=== PATIENT | female | born 1965 | race Caucasian/White ===

== ENCOUNTER 2017-03-18 19:06 | Emergency (ER) | payer SELFPAY ==
[2017-03-18 19:46] LABS: ADD MAN DIFF? NO
[2017-03-18 19:49] LABS: BASO % 1 % (0-3); EOS % 2 % (0-3); HEMATOCRIT 40.7 % (36.0-47.0); HEMOGLOBIN 13.9 g/dL (12.0-15.5); LYMPH # 2.3 x10^3/uL (1.0-4.8); LYMPH % 25 % (24-48); MEAN CORPUSCULAR HEMOGLOBIN 31 pg (25-35); MEAN CORPUSCULAR HGB CONC 34 g/dL (31-37); MEAN CORPUSCULAR VOLUME 92 fL (79-100); MONO % 8 % (0-9); NEUT % 65 % (31-73); PLATELET COUNT 308 x10^3/uL (140-400); RED BLOOD COUNT 4.44 x10^6/uL (3.50-5.40); RED CELL DISTRIBUTION WIDTH 13.3 % (11.5-14.5); WHITE BLOOD COUNT 9.1 x10^3/uL (4.0-11.0)
[2017-03-18 19:53] LABS: BILIRUBIN,URINE NEGATIVE (NEG); GLUCOSE,URINE NEGATIVE (NEG); NITRITE,URINE NEGATIVE (NEG); PROTEIN,URINE NEGATIVE (NEG-TRACE)
[2017-03-18] MEDS: IV NORMAL SALINE 1000ML BAG 1,000 ML IV (19:53)
[2017-03-18] MEDS: ONDANSETRON PF 4 MG/2 ML VIAL. IV (19:54)
[2017-03-18] MEDS: KETOROLAC 30 MG/ML INJ. IV (19:55)
[2017-03-18 19:56] LABS: ANION GAP 11 (6-14); BLOOD UREA NITROGEN 12 mg/dL (7-20); BUN/CREATININE RATIO 15 (6-20); CALCIUM 8.2 mg/dL (8.5-10.1); CARBON DIOXIDE 24 mmol/L (21-32); CHLORIDE 105 mmol/L (98-107); CREATININE 0.8 mg/dL (0.6-1.0); GFR 75.9; GLUCOSE 113 mg/dL (70-99); POTASSIUM 3.7 mmol/L (3.5-5.1); SODIUM 140 mmol/L (136-145)
[2017-03-18] MEDS: FAMOTIDINE 20 MG/2 ML VIAL IVP (19:56)
[2017-03-18] MEDS: LIDO:MAALOX:DONNATAL 1:1:1 15 ML SINGLE DOSE SWSW (19:56)
[2017-03-18 20:02] LABS: ALBUMIN 3.4 g/dL (3.4-5.0); ALBUMIN/GLOBULIN RATIO 0.8 (1.0-1.7); ALK PHOS 106 U/L (46-116); ALT (SGPT) 14 U/L (14-59); AST (SGOT) 21 U/L (15-37); TOTAL BILIRUBIN 0.7 mg/dL (0.2-1.0); TOTAL PROTEIN 7.8 g/dL (6.4-8.2)
[2017-03-18 20:04] LABS: TROPONINI < 0.017 ng/mL (0.000-0.055)
[2017-03-18 20:04] LABS: BACTERIA,URINE MANY /HPF (0-FEW); RBC,URINE 0 /HPF (0-2); SQUAMOUS EPITHELIAL CELL,UR MANY /LPF; WBC,URINE 0 /HPF (0-4)
[2017-03-18] MEDS ORDERED: CONTRAST GIVEN MC (20:45)
[2017-03-18] MEDS: IOHEXOL 300 MG/ML 100ML VIAL. IV (20:47)
== END 2017-03-18 22:10 | disposition home or self-care (01) ==
LOC: ER 22:10
DX: R10.13 Epigastric pain (principal); K21.9 Gastro-esophageal reflux disease without esophagitis; F12.10 Cannabis abuse, uncomplicated; F15.10 Other stimulant abuse, uncomplicated; F10.20 Alcohol dependence, uncomplicated; Z90.49 Acquired absence of other specified parts of digestive tract; Z90.710 Acquired absence of both cervix and uterus
CPT/HCPCS: 36415; 74177; 80053; 81001; 83690; 84484; 85025; 87086; 93005; 96361; 96374; 96375; 99285-25; J1885; J2405; J7030; Q9967; S0028

== ENCOUNTER 2018-10-03 13:19 | Emergency (ER) | payer SELFPAY ==
[~2018-10-03] VITALS: Ht 162.6 cm; Wt 86.2 kg
[~2018-10-03 13:19] MED LIST: ACYC800T PO; BENZ100C PO; CLIN300C8 PO; FAMO-63 PO; HYDR-2678 PO; HYDR-3164 PO; NAPR-683 PO; OMEP20TA63 PO; ONDA4TAB10 SL; PRED20TA PO
--- NOTE | 2018-10-03 14:57 | PHYS DOC ---
Past Medical History Past Medical History: Cancer, Other Additional Past Medical Histor: acid reflux; cervical CA Past Surgical History: Cholecystectomy, , Hysterectomy Additional Past Surgical Histo: D&C Alcohol Use: Heavy Drug Use: Marijuana, Methamphetamine Adult General Chief Complaint Chief Complaint: DRUG ABUSE [facility] HPI Patient is a 53 year old female that presents for help stopping meth and alcohol. The patient states she last used meth and alcohol yesterday. She also states she's been feeling depressed and wanting to sleep a lot. The patient states that she would never kill herself however. Also states she's been feeling little short of breath recently. States she has not eaten in 2-3 days. Review of Systems Review of Systems Constitutional: Denies fever or chills [] Eyes: Denies change in visual acuity, redness, or eye pain [] HENT: Denies nasal congestion or sore throat [] Respiratory: Reports shortness of breath. Cardiovascular: No additional information not addressed in HPI [] GI: Denies abdominal pain, nausea, vomiting, bloody stools or diarrhea [] : Denies dysuria or hematuria [] Musculoskeletal: Denies back pain or joint pain [] Integument: Denies rash or skin lesions [] Neurologic: Denies headache, focal weakness or sensory changes [] Endocrine: Denies polyuria or polydipsia [] Complete systems were reviewed and found to be within normal limits, except as documented in this note. Current Medications Current Medications Current Medications Medications (Trade) Dose Ordered Sig/Faisal Start Time Stop Time Status Last Admin Dose Admin Lorazepam (Ativan Inj) 2 mg 1X ONCE 10/03/18 15:00 10/03/18 15:01 DC 10/03/18 15:17 2 MG Ondansetron HCl (Zofran) 4 mg 1X ONCE 10/03/18 15:00 10/03/18 15:01 DC 10/03/18 15:16 4 MG Sodium Chloride 1,000 ml @ 1,000 mls/hr 1X ONCE 10/03/18 15:00 10/03/18 15:59 DC 10/03/18 15:17 1,000 MLS/HR Allergies Allergies Allergies Coded Allergies Type Severity Reaction Last Updated Verified No Known Drug Allergies 03/18/17 No Physical Exam Physical Exam Constitutional: Well developed, well nourished, no acute distress, non-toxic appearance. [] HENT: Normocephalic, atraumatic, bilateral external ears normal, oropharynx moist, no oral exudates, nose normal. [] Eyes: PERRLA, EOMI, conjunctiva normal, no discharge. [] Neck: Normal range of motion, no tenderness, supple, no stridor. [] Cardiovascular:Heart rate regular rhythm, no murmur [] Lungs & Thorax: Bilateral breath sounds clear to auscultation [] Abdomen: Bowel sounds normal, soft, no tenderness, no masses, no pulsatile masses. [] Skin: Warm, dry, no erythema, no rash. [] Back: No tenderness, no CVA tenderness. [] Extremities: No tenderness, no cyanosis, no clubbing, ROM intact, no edema. [] Neurologic: Alert and oriented X 3, normal motor function, normal sensory function, no focal deficits noted. [] Psychologic: Affect anxious, judgement normal Current Patient Data Vital Signs Vital Signs Date Time Temp Pulse Resp B/P (MAP) Pulse Ox O2 Delivery O2 Flow Rate FiO2 10/03/18 14:38 97.7 102 18 163/112 (129) 99 Room Air 97.7 Lab Values Laboratory Tests Test 10/03/18 14:30 10/03/18 15:19 Urine Opiates Screen Pos (NEG) Urine Methadone Screen Neg (NEG) Urine Barbiturates Neg (NEG) Urine Phencyclidine Screen Neg (NEG) Urine Amphetamine/Methamphetamine Pos (NEG) Urine Benzodiazepines Screen Neg (NEG) Urine Cocaine Screen Neg (NEG) Urine Cannabinoids Screen Neg (NEG) Urine Ethyl Alcohol Neg (NEG) White Blood Count 6.9 x10^3/uL (4.0-11.0) Red Blood Count 4.67 x10^6/uL (3.50-5.40) Hemoglobin 14.7 g/dL (12.0-15.5) Hematocrit 42.4 % (36.0-47.0) Mean Corpuscular Volume 91 fL (79-100) Mean Corpuscular Hemoglobin 32 pg (25-35) Mean Corpuscular Hemoglobin Concent 35 g/dL (31-37) Red Cell Distribution Width 13.5 % (11.5-14.5) Platelet Count 307 x10^3/uL (140-400) Neutrophils (%) (Auto) 60 % (31-73) Lymphocytes (%) (Auto) 33 % (24-48) Monocytes (%) (Auto) 5 % (0-9) Eosinophils (%) (Auto) 2 % (0-3) Basophils (%) (Auto) 1 % (0-3) Neutrophils # (Auto) 4.1 x10^3/uL (1.8-7.7) Lymphocytes # (Auto) 2.3 x10^3/uL (1.0-4.8) Monocytes # (Auto) 0.3 x10^3/uL (0.0-1.1) Eosinophils # (Auto) 0.1 x10^3/uL (0.0-0.7) Basophils # (Auto) 0.1 x10^3/uL (0.0-0.2) Sodium Level 135 mmol/L (136-145) L Potassium Level 3.8 mmol/L (3.5-5.1) Chloride Level 103 mmol/L (98-107) Carbon Dioxide Level 21 mmol/L (21-32) Anion Gap 11 (6-14) Blood Urea Nitrogen 9 mg/dL (7-20) Creatinine 0.9 mg/dL (0.6-1.0) Estimated GFR (Cockcroft-Gault) 65.8 BUN/Creatinine Ratio 10 (6-20) Glucose Level 102 mg/dL (70-99) H Calcium Level 9.3 mg/dL (8.5-10.1) Magnesium Level 2.1 mg/dL (1.8-2.4) Total Bilirubin 1.5 mg/dL (0.2-1.0) H Aspartate Amino Transferase (AST) 34 U/L (15-37) Alanine Aminotransferase (ALT) 22 U/L (14-59) Alkaline Phosphatase 149 U/L (46-116) H Troponin I Quantitative < 0.017 ng/mL (0.000-0.055) XH-Mfi-C-Type Natriuretic Peptide 121 pg/mL (0-124) Total Protein 8.0 g/dL (6.4-8.2) Albumin 3.6 g/dL (3.4-5.0) Albumin/Globulin Ratio 0.8 (1.0-1.7) L Lipase 90 U/L (73-393) Ethyl Alcohol Level < 10 mg/dL (0-10) Laboratory Tests 10/03/18 15:19 Laboratory Tests 10/03/18 15:19 EKG EKG EKG interpreted by Rob Booker with rate of 94. NO STEMI.[] Radiology/Procedures Radiology/Procedures [] PATIENT: CLOTILDE HENSON ACCOUNT: [id number] : 1965 LOCATION: ER AGE: 53 SEX: F EXAM STATUS: REG ER ORD. PHYSICIAN: GUEVARA ARELLANO APRN REASON: shortness of breath, alchole user PROCEDURE: CHEST PA & LATERAL CHEST PA LATERAL History: Shortness of breath Comparison: 11/23/2015 two-view chest x-ray exam. Findings: The cardiomediastinal silhouette is normal. Pulmonary vasculature is normal. The lungs are clear. No pleural effusion or pneumothorax is seen. There is no acute bone abnormality. Right upper quadrant surgical clips are present. IMPRESSION: No acute cardiopulmonary process. Electronically signed by: Elmer Clarke MD (10/03/2018 3:35 PM) [facility] Course & Med Decision Making Course & Med Decision Making Pertinent Labs and Imaging studies reviewed. (See chart for details) Will get labs, ekg, chest x-ray, tox, urine, give fluids, ativan, and zofran and have social work talk to patient. Chest x-ray is negative, tox screen is positive for meth, ETOH is negative, labs are unremarkable. Social Work talked to patient and has given resources for housing and rehab and set rehab up for 10/09. Patient has never had seizures during detox. Will d/c home for follow up. Patient is agreeable. Dragon Disclaimer Dragon Disclaimer This electronic medical record was generated, in whole or in part, using a voice recognition dictation system. Departure Departure Impression: Primary Impression: Methamphetamine dependence Disposition: HOME, SELF-CARE Condition: STABLE Referrals: NO PCP (PCP) Patient Instructions: Alcohol Withdrawal, Methamphetamine Abuse, Complications Additional Instructions: Thank you for visiting [facility]. We appreciate you trusting us with your care. If any additional problems come up don't hesitate to return to visit us. Please follow up with your primary care provider so they can plan additional care if needed and know about the problem that you had. If symptoms worsen come back to the Emergency Department. Any concerning symptoms that start such as chest pain, shortness of air, weakness or numbness on one side of the body, running high fevers or any other concerning symptoms return to the ER. Please follow up with resources as given to you. GUEVARA ARELLANO APRN Oct 03, 2018 14:57
[2018-10-03] MEDS ORDERED: ONDANSETRON PF 4 MG/2 ML VIAL. IV ONE (15:00)
[2018-10-03] MEDS ORDERED: IV NORMAL SALINE 1000ML BAG 1,000 ML IV ONE (15:00)
--- NOTE | 2018-10-03 15:19 | EKG ---
[facility] [address] [place] [address] Test Date: 2018-10-03 Test Time: 15:10:22 Pat Name: CLOTILDE HENSON Department: Room: Gender: F Concierge: : 1965 Requested By: GUEVARA ARELLANO Order Number: [id number] Reading MD: Measurements Intervals [place] Rate: 94 P: 32 FL: 140 QRS: -16 QRSD: 78 T: 24 QT: 350 QTc: 443 Interpretive Statements SINUS RHYTHM LEFTWARD AXIS QRS(T) CONTOUR ABNORMALITY CONSIDER ANTEROSEPTAL MYOCARDIAL DAMAGE POSSIBLY ABNORMAL ECG RI6.01 No previous ECG available for comparison
[2018-10-03 15:27] LABS: BASO # 0.1 x10^3/uL (0.0-0.2); BASO % 1 % (0-3); EOS # 0.1 x10^3/uL (0.0-0.7); EOS % 2 % (0-3); HEMATOCRIT 42.4 % (36.0-47.0); HEMOGLOBIN 14.7 g/dL (12.0-15.5); LYMPH # 2.3 x10^3/uL (1.0-4.8); LYMPH % 33 % (24-48); MEAN CORPUSCULAR HEMOGLOBIN 32 pg (25-35); MEAN CORPUSCULAR HGB CONC 35 g/dL (31-37); MEAN CORPUSCULAR VOLUME 91 fL (79-100); MONO # 0.3 x10^3/uL (0.0-1.1); MONO % 5 % (0-9); NEUT # 4.1 x10^3/uL (1.8-7.7); NEUT % 60 % (31-73); PLATELET COUNT 307 x10^3/uL (140-400); RED BLOOD COUNT 4.67 x10^6/uL (3.50-5.40); RED CELL DISTRIBUTION WIDTH 13.5 % (11.5-14.5); WHITE BLOOD COUNT 6.9 x10^3/uL (4.0-11.0)
[2018-10-03 15:28] LABS: BARBITURATES NEG (NEG); BENZODIAZEPINES NEG (NEG); CANNABINOIDS NEG (NEG); COCAINE NEG (NEG); METHADONE NEG (NEG); OPIATES POS (NEG); PHENCYCLIDINE NEG (NEG)
[2018-10-03 15:35] LABS: AMPHETAMINE/METHAMPHETAMINE POS (NEG)
--- NOTE | 2018-10-03 15:38 | RAD ---
CHEST PA LATERAL History: Shortness of breath Comparison: 11/23/2015 two-view chest x-ray exam. Findings: The cardiomediastinal silhouette is normal. Pulmonary vasculature is normal. The lungs are clear. No pleural effusion or pneumothorax is seen. There is no acute bone abnormality. Right upper quadrant surgical clips are present. IMPRESSION: No acute cardiopulmonary process. Electronically signed by: Elmer Clarke MD (10/03/2018 3:35 PM) [facility]
[2018-10-03 15:40] LABS: CALCIUM 9.3 mg/dL (8.5-10.1); CREATININE 0.9 mg/dL (0.6-1.0); GFR 65.8; POTASSIUM 3.8 mmol/L (3.5-5.1)
[2018-10-03 15:46] LABS: ALBUMIN 3.6 g/dL (3.4-5.0); ALBUMIN/GLOBULIN RATIO 0.8 (1.0-1.7); MAGNESIUM 2.1 mg/dL (1.8-2.4); TOTAL BILIRUBIN 1.5 mg/dL (0.2-1.0)
[2018-10-03 16:16] VITALS: BP 144/75
== END 2018-10-03 18:35 | disposition home or self-care (01) ==
LOC: ER 13:19
DX: F15.20 Other stimulant dependence, uncomplicated (principal); R06.02 Shortness of breath; F10.20 Alcohol dependence, uncomplicated; Y90.0 Blood alcohol level of less than 20 mg/100 ml; Z90.49 Acquired absence of other specified parts of digestive tract; Z98.890 Other specified postprocedural states; Z90.710 Acquired absence of both cervix and uterus
CPT/HCPCS: 36415; 71046; 80053; 80307; 83690; 83735; 83880; 84484; 85025; 93005; 96361; 96374; 96375; 99285; G0480; J2060; J2405; J7030

== ENCOUNTER 2018-10-05 10:33 | Emergency (ER) | payer SELFPAY ==
[~2018-10-05] VITALS: Ht 162.6 cm; Wt 86.2 kg
[2018-10-05 10:46] VITALS: BP 147/85
[2018-10-05] MEDS ORDERED: TRIA15OI TP (10:58)
[2018-10-05] MEDS ORDERED: DIPH25CA58 PO (10:58)
--- NOTE | 2018-10-05 10:59 | PHYS DOC ---
Past Medical History Past Medical History: Cancer, Other Additional Past Medical Histor: acid reflux; cervical CA Past Surgical History: Cholecystectomy, , Hysterectomy Additional Past Surgical Histo: D&C Alcohol Use: Heavy Drug Use: Marijuana, Methamphetamine Adult General Chief Complaint Chief Complaint: INSECT BITE HPI HPI Patient is a 53 year old female who presents to the ED today complaining of a rash that began 2 days ago after sleeping on a couch in the hospital. Patient states the rash is pruritic. She states she doesn't have a place to stay and was staying with a patient upstairs. Review of Systems Review of Systems Constitutional: Denies fever or chills [] Musculoskeletal: Denies back pain or joint pain [] Integument: Reports a rash[] Neurologic: Denies headache, focal weakness or sensory changes [] All other systems were reviewed and found to be within normal limits, except as documented in this note. Allergies Allergies Allergies Coded Allergies Type Severity Reaction Last Updated Verified No Known Drug Allergies 03/18/17 No Physical Exam Physical Exam Constitutional: Well developed, well nourished, no acute distress, non-toxic appearance. [], Skin: Mild amount of erythematous rash mostly don't patient's abdomen and back bilaterally, rash suspicious of insect bites Back: No tenderness, no CVA tenderness. [] Extremities: No tenderness, no cyanosis, no clubbing, ROM intact, no edema. [] Neurologic: Alert and oriented X 3, normal motor function, normal sensory function, no focal deficits noted. [] Psychologic: Affect normal, judgement normal, mood normal. [] Current Patient Data Vital Signs Vital Signs Date Time Temp Pulse Resp B/P (MAP) Pulse Ox O2 Delivery O2 Flow Rate FiO2 10/05/18 10:46 98.4 89 16 147/85 (105) 98 Room Air 98.4 EKG EKG [] Radiology/Procedures Radiology/Procedures [] Course & Med Decision Making Course & Med Decision Making Pertinent Labs and Imaging studies reviewed. (See chart for details) This is a 53-year-old female patient presented to the ED today with a rash suspicious insect bites. Patient has history of methamphetamine use, she is asking for pain medicine. Offered her Tylenol and Benadryl, informed him we will not give her any narcotics, this no indication for it. Discharged with Benadryl and triamcinolone cream. Encouraged her to go home and clean everything she had when she stayed in the hospital. Dragon Disclaimer Dragon Disclaimer This electronic medical record was generated, in whole or in part, using a voice recognition dictation system. Departure Departure Impression: Primary Impression: Insect bites Disposition: 01 HOME, SELF-CARE Condition: STABLE Referrals: NO PCP (PCP) EDGAR FOLEY MD Follow-up in 2 weeks Patient Instructions: Insect Bite, [id number] Additional Instructions: You were evaluated in the emergency room with a rash suspicious of insect bites. Use the prescribed medications as ordered. Follow-up with your doctor in 1 week or the provided doctor. Scripts Triamcinolone Acetonide (TRIAMCINOLONE ACETONIDE 0.1% OINT) 15 Gm Oint...g. 1 EMILEE TP BID for WOUND CARE, #1 TUBE Prov: CHILO SAWYER APRN 10/05/18 Diphenhydramine Hcl (BENADRYL) 25 Mg Capsule 1 CAP PO Q6HRS PRN for RASH, #30 CAP 1 Refill Prov: CHILO SAWYER APRN 10/05/18 Problem Qualifiers Primary Impression: Insect bites Encounter type: initial encounter Site of insect bite: abdominal wall Qualified Codes: S30.861A - Insect bite (nonvenomous) of abdominal wall, initial encounter; W57.XXXA - Bitten or stung by nonvenomous insect and other nonvenomous arthropods, initial encounter CHILO SAWYER APRN Oct 05, 2018 10:58
[2018-10-05] MEDS ORDERED: diphenhydrAMINE HCL 25 MG CAPSULE PO ONE (11:00)
[2018-10-05] MEDS ORDERED: ACETAMINOPHEN 500 MG TABLET PO ONE (11:00)
== END 2018-10-05 11:13 | disposition home or self-care (01) ==
LOC: ER 10:33
DX: S30.861A Insect bite (nonvenomous) of abdominal wall, initial encounter (principal); S40.862A Insect bite (nonvenomous) of left upper arm, initial encounter; S40.861A Insect bite (nonvenomous) of right upper arm, initial encounter; S80.862A Insect bite (nonvenomous), left lower leg, initial encounter; S80.861A Insect bite (nonvenomous), right lower leg, initial encounter; K21.9 Gastro-esophageal reflux disease without esophagitis; F15.20 Other stimulant dependence, uncomplicated; F10.20 Alcohol dependence, uncomplicated; Y90.9 Presence of alcohol in blood, level not specified; Z90.49 Acquired absence of other specified parts of digestive tract; Z98.890 Other specified postprocedural states; Z90.710 Acquired absence of both cervix and uterus; W57.XXXA Bitten or stung by nonvenomous insect and other nonvenomous arthropods, initial encounter; Y93.89 Activity, other specified; Y92.89 Other specified places as the place of occurrence of the external cause; Y99.8 Other external cause status
CPT/HCPCS: 99283; Q0163

== ENCOUNTER 2019-06-06 15:14 | Emergency (ER) | payer SELFPAY ==
[~2019-06-06] VITALS: Ht 162.6 cm; Wt 90.0 kg
[~2019-06-06 15:14] MED LIST changes: +DIPH25CA58 PO; +TRIA15OI TP
[2019-06-06 15:50] VITALS: BP 141/88
[2019-06-06] MEDS ORDERED: CHLO15MO2 SWSP (16:26)
[2019-06-06] MEDS ORDERED: PENI500T PO (16:26)
[2019-06-06] MEDS ORDERED: NAPR-514 PO (16:26)
--- NOTE | 2019-06-06 16:27 | PHYS DOC ---
Past Medical History Past Medical History: Cancer, Other Additional Past Medical Histor: acid reflux; cervical CA Past Surgical History: Cholecystectomy, , Hysterectomy Additional Past Surgical Histo: D&C Smoking Status: Light Tobacco Smoker Alcohol Use: Heavy Drug Use: Marijuana, Methamphetamine Adult General Chief Complaint Chief Complaint: DENTAL PROBLEM HPI HPI Patient is a 53 year old female who presents to the emergency department with complaints of lower left dental pain for the last 2 to 3 days. Patient states that she has bad teeth in this area and has had increased pain and swelling lower left facial swelling that is slowly increasing since the onset about 3 days ago. She denies any nausea, vomiting, diarrhea, cough, shortness of breath, ear pain, headache, sore throat, or abdominal pain. She currently rates her pain 10 out of 10 on the pain scale, she denies any alleviating factors. Review of Systems Review of Systems Complete ROS is negative unless otherwise noted in HPI. Allergies Allergies Allergies Coded Allergies Type Severity Reaction Last Updated Verified No Known Drug Allergies 03/18/17 No Physical Exam Physical Exam See Above Constitutional: Well developed, well nourished, no acute distress HENT: Normocephalic, atraumatic, bilateral external ears normal, bilateral TMs normal, posterior pharynx normal, oropharynx moist, no oral exudates, nose nor mal; diffuse dental decay with mulitple broken teeth and dental caries in the LLQ, no visible dental abscess, diffuse gingival erythema and edema concerning for gingivitis. [] Eyes: PERRLA, EOMI, conjunctiva normal, no discharge. [] Neck: Normal range of motion, no tenderness, supple, no stridor. [] Cardiovascular:Heart rate regular rhythm, no murmur [] Lungs & Thorax: Bilateral breath sounds clear to auscultation, Respirations even and unlabored, no retractions, no respiratory distress [] Skin: Warm, dry, no erythema, no rash. [] Extremities: No cyanosis, ROM intact Neurologic: Alert and oriented X 3, no focal deficits noted. [] Psychologic: Affect normal, judgement normal, mood normal. [] Current Patient Data Vital Signs Vital Signs Date Time Temp Pulse Resp B/P (MAP) Pulse Ox O2 Delivery O2 Flow Rate FiO2 06/06/19 15:50 97.7 97 20 141/88 (105) 98 Room Air 97.7 EKG EKG [] Radiology/Procedures Radiology/Procedures [] Course & Med Decision Making Course & Med Decision Making Pertinent Labs and Imaging studies reviewed. (See chart for details) [] Dragon Disclaimer Dragon Disclaimer This electronic medical record was generated, in whole or in part, using a voice recognition dictation system. Departure Departure Impression: Primary Impression: Infected dental carries Additional Impressions: Dentalgia Acute gingivitis Disposition: HOME, SELF-CARE Condition: STABLE Referrals: NO PCP (PCP) Patient Instructions: Dental Caries, Gingivitis, [id number] Additional Instructions: Fill prescription(s) and use as directed. Follow up with dentist using the referral list provided. Return to the ER if symptoms worsen. Scripts Naproxen (NAPROXEN) 500 Mg Tablet 1 TAB PO BID PRN for PAIN for 10 Days, #20 TAB 0 Refills Prov: SAMUEL BACH APRN 06/06/19 Chlorhexidine Gluconate (PERIDEX) 15 Ml Mouthwash 15 ML SWSP BID for 7 Days, #473 ML 0 Refills [place] teeth before using to prevent staining. Swish for approximately 30 seconds before spitting. Prov: SAMUEL BACH APRN 06/06/19 Penicillin V Potassium (PENICILLIN V POTASSIUM) 500 Mg Tablet 1 TAB PO QID for 10 Days, #40 TAB 0 Refills Prov: SAMUEL BACH APRN 06/06/19 Problem Qualifiers SAMUEL BACH APRN Jun 06, 2019 16:27
[2019-06-06] MEDS ORDERED: HYDROcodone/APAP 5/325MG 1 TAB TABLET PO ONE (16:30)
== END 2019-06-06 16:46 | disposition home or self-care (01) ==
LOC: ER 15:14
DX: K02.9 Dental caries, unspecified (principal); K05.00 Acute gingivitis, plaque induced; K08.89 Other specified disorders of teeth and supporting structures; R60.0 Localized edema; F17.200 Nicotine dependence, unspecified, uncomplicated; F10.10 Alcohol abuse, uncomplicated; F12.90 Cannabis use, unspecified, uncomplicated; F15.90 Other stimulant use, unspecified, uncomplicated; Z90.49 Acquired absence of other specified parts of digestive tract; Z85.9 Personal history of malignant neoplasm, unspecified; Z90.710 Acquired absence of both cervix and uterus; Z98.890 Other specified postprocedural states
CPT/HCPCS: 99283

== ENCOUNTER 2019-10-17 16:19 | Emergency (ER) | payer SELFPAY ==
[~2019-10-17 16:19] MED LIST changes: +CHLO15MO2 SWSP; +NAPR-514 PO; +PENI500T PO
== END 2019-10-17 16:36 | disposition left against medical advice (07) ==
LOC: ER 16:19
DX: R51 Headache (principal); Z53.21 Procedure and treatment not carried out due to patient leaving prior to being seen by health care provider

== ENCOUNTER 2020-10-14 19:54 | Emergency (ER) | payer SELFPAY ==
[~2020-10-14 19:54] MED LIST changes: -ACYC800T PO; +ACYC800T88 PO; -CLIN300C8 PO; +CLIN300C9 PO
== END 2020-10-14 20:17 | disposition left against medical advice (07) ==
LOC: ER 19:54
DX: K08.89 Other specified disorders of teeth and supporting structures (principal); Z53.21 Procedure and treatment not carried out due to patient leaving prior to being seen by health care provider

== ENCOUNTER 2021-01-30 20:21 | Emergency (ER) | payer SELFPAY ==
[~2021-01-30] VITALS: Ht 162.6 cm; Wt 90.9 kg
[~2021-01-30 20:21] MED LIST changes: +CLIN-94 PO; -CLIN300C9 PO
--- NOTE | 2021-01-30 21:12 | PHYS DOC ---
Past Medical History Past Medical History: Cancer, Other Additional Past Medical Histor: acid reflux; cervical CA Past Surgical History: Cholecystectomy, , Hysterectomy Additional Past Surgical Histo: D&C Smoking Status: Light Tobacco Smoker Alcohol Use: Heavy Drug Use: Marijuana, Methamphetamine General Adult EDM: Chief Complaint: SKIN PROBLEM HPI: HPI: Patient is a 55-year-old female presenting for skin issues. This is a chronic problem. Patient openly admits she picks at her skin. She also has known hi story of methamphetamine abuse and reports this is exacerbated episodes of her picking. Most lesions are located on her face, upper extremities and abdomen. They are in various stages of healing but read and bother her cosmetically. She is not taken anything or put anything on sites of interest in attempt to improve her symptoms. She has had no fever. No active draining or other concerning findings reported Review of Systems: Review of Systems: Fourteen body systems of review of systems have been reviewed. See HPI for pertinent positives and negative responses, other chavez all other systems are n egative, non-pertinent or non-contributory Heart Score: C/O Chest Pain: No Risk Factors: Risk Factors: DM, Current or recent (<one month) smoker, HTN, HLP, family history of CAD, obesity. Risk Scores: Score 0 - 3: 2.5% MACE over next 6 weeks - Discharge Home Score 4 - 6: 20.3% MACE over next 6 weeks - Admit for Clinical Observation Score 7 - 10: 72.7% MACE over next 6 weeks - Early Invasive Strategies Allergies: Allergies: Allergies Coded Allergies Type Severity Reaction Last Updated Verified No Known Drug Allergies 03/18/17 No Physical Exam: PE: Constitutional: Appears older than stated age, poor hygiene overall, nontoxic in appearance HENT: Normocephalic, atraumatic, bilateral external ears normal, oropharynx moist, no oral exudates, nose normal. Eyes: PERRLA, EOMI, conjunctiva normal, no discharge. Neck: Normal range of motion, no tenderness, supple, no stridor. Cardiovascular: Heart rate regular per monitor Lungs & Thorax: No respiratory distress or accessory muscle use, bilateral chest rise Abdomen: Abdomen soft, non-tender, bowel sounds present in all quadrants, no guarding or rebound, nonacute abdomen. Skin: Warm, dry, no erythema, no rash. Numerous self-induced excoriations which are in various stages of healing present to face, bilateral upper extremities, and lateral portion of right bosom. No areas are indurated have streaking, have palpable exudate or other concerning findings significant for concerning cellulitis and/or underlying abscess Back: No tenderness, no CVA tenderness. Extremities: No tenderness, no cyanosis, no clubbing, ROM intact, no edema. Neurologic: Alert and oriented X 3, grossly normal motor & sensory function, no focal deficits noted. Psychologic: Anxious affect and mood EKG: EKG: [] Radiology/Procedures: Radiology/Procedures: [] Course & Med Decision Making: Course & Med Decision Making ABCs unremarkable HPI and comprehensive physical exam nonconcerning for any emergent or surgical issues No indication for further diagnostic ER workup, intervention, or hospitalization at this time Discussed skin lesion due to ongoing picking. No obvious active infection or indication for antibiotics or further diagnostic work-up at this time. Supportive care advised with close PCP follow-up recommended. Dragon Disclaimer: Dragon Disclaimer: This electronic medical record was generated, in whole or in part, using a voice recognition dictation system. Departure Departure Impression: Primary Impression: Skin problem Disposition: HOME / SELF CARE / HOMELESS Condition: STABLE Referrals: NO PCP (PCP) Additional Instructions: As discussed prior to ER departure, your comprehensive physical exam was nonconcerning for any emergent or surgical issues. There is no indication for further diagnostic work-up and/or intervention in ER setting. As recommended, please stop picking at your skin and utilized Aquaphor or Vaseline which are petroleum jelly-based ointments on your skin lesions to help keep them moist and provide a barrier to the outside world so they heal. Please call your primary care physician first thing in the morning to review ER visit this evening and need for close outpatient follow-up. If any concerning signs or symptoms present prior to outpatient follow-up please do not hesitate to come back for repeat evaluation. It was a pleasure to take care of you and I wish you the best going forward ANÍBAL ROWLAND DO Jan 30, 2021 21:12
[2021-01-30 23:02] VITALS: BP 147/89
[2021-01-30] MEDS ORDERED: ACETAMINOPHEN 325 MG TABLET. PO ONE (23:30)
[2021-01-30] MEDS ORDERED: NEOMY/BACITR/POLYMYXIN OINT PACKET. TP ONE (23:30)
== END 2021-01-30 23:07 | disposition home or self-care (01) ==
LOC: ER 20:21
DX: L98.8 Other specified disorders of the skin and subcutaneous tissue (principal); K21.9 Gastro-esophageal reflux disease without esophagitis; Z90.49 Acquired absence of other specified parts of digestive tract; Z90.710 Acquired absence of both cervix and uterus; Z72.0 Tobacco use; F10.20 Alcohol dependence, uncomplicated; Y90.9 Presence of alcohol in blood, level not specified
CPT/HCPCS: 99283